=== PATIENT | female | born 1950 | race Caucasian/White ===

== ENCOUNTER 2018-04-02 06:47 | Inpatient (IN) ==
--- NOTE | 2018-04-02 07:19 | Emergency Department Note ---
Disposition Clinical Impression: Intractable abdominal pain Abdominal pain Qualifiers: Abdominal location: right lower quadrant Qualified Code(s): R10.31 - Right lower quadrant pain Disposition: Admitted As Inpatient Condition: Fair General Adult HPI - General Chief complaint: ED Extremity Problem,Nontraumatic Stated complaint: R Flank Pain Time Seen by Provider: 04/02/18 06:56 Source: patient Limitations: no limitations Nursing Notes Reviewed: Yes Vital Signs Reviewed: Yes - History of Present Illness HPI Narrative: 68 yo f with flank pain. type two DM, htn, bowel resection due to diverticulitis. Pain present for 4 days but worsened significantly this morning while she was walking into work. Denies recent trauma. Patient is writhing in the bed in pain. Denies vaginal bleeding, vaginal discharge. Unclear if she has a history of kidney stone the past. Denies hematochezia, melena, diarrhea. Denies chest pain, shortness of breath, cough, dysuria, change in urinary frequency or urgency. Pain Scale: 10 - Related Data Home Medications Medication Instructions Recorded Confirmed Glimepiride [Amaryl] 1 mg PO DAILY 04/02/18 04/02/18 Lovastatin 10 mg PO HS 04/02/18 04/02/18 RX: Ibuprofen 800 mg PO Q8H PRN 04/02/18 04/02/18 RX: hydroCHLOROthiazide 25 mg PO DAILY 04/02/18 04/02/18 [Hydrochlorothiazide] Allergies Allergy/AdvReac Type Severity Reaction Status Date / Time prochlorperazine Allergy Anaphylaxis Verified 04/02/18 22:17 [From Compazine] All systems ED: reviewed and negative except as stated. Past Medical History - Past Medical History Attestation: Yes The following information was validated with the patient. Source: patient Medical history: Reports: diabetes, hypertension Surgical history: Reports: other (heart cath in 95) Psychiatric history: Reports: no psych history [employer] history: Reports: other - Social History Smoking Status: Current some day smoker Smokeless Tobacco Status: No Alcohol use: Reports: none Drug use: Reports: none Physical Exam General: Alert and in no acute distress Skin: Warm, dry, intact Head: Normocephalic and atraumatic Neck: Supple, trachea midline and no tenderness Cardiovascular: RRR, no murmur, normal perfusion. Pulses equal in the bilateral lower extremity. Respiratory: CTAB, no wheezing, cough, or respiratory distress Musculoskeletal: Normal strength, no tenderness, swelling or deformity GI: Soft, moderate tenderness to palpation of the right groin and right lower quadrant. No hernia noted on exam. Neuro: A&O to person, place, time and situation. No focal deficits noted on exam Psychiatric: cooperative and appropriate mood and affect. - General Limitations: no limitations General appearance: alert, in no apparent distress Course Vital Signs Temperature 97.6 F 04/02/18 06:52 Pulse Rate 92 04/02/18 06:52 Respiratory Rate 18 04/02/18 06:52 Blood Pressure 150/107 04/02/18 06:52 O2 Sat by Pulse Oximetry 99 04/02/18 06:52 Temperature 98.1 F 04/03/18 03:31 Pulse Rate 60 04/03/18 03:31 Respiratory Rate 16 04/03/18 03:31 Blood Pressure 110/50 04/03/18 03:31 O2 Sat by Pulse Oximetry 97 04/03/18 03:31 Oxygen Delivery Oxygen Delivery Nasal Cannula Medical Decision Making - [facility] Narrative Medical decision making narrative: Patient's pain was severe, CT without contrast does not show evidence of present or recently passed ureterolithiasis. I ordered CTA of the chest abdomen pelvis to further evaluate possible aortic dissection of the right iliac crest, the patient's pain. I also obtained lactic acid to further evaluate for possible mesenteric ischemia secondary to her pain out of proportion to exam. Pulses remained equal in bilateral lower extremities. Laboratory evaluation was largely within normal limits. CT did not show evidence of acute surgical patho logy however she did have a large amount of stool in her colon. Patient required multiple doses of pain medication emergency department and will be admitted for intractable pain. - Medical Records Medical records reviewed: Yes I reviewed the patient's medical records. - Lab Data Lab results reviewed: Yes I reviewed the patient's lab results. Result diagrams: 04/02/18 07:42 04/02/18 07:42 Lab Results 04/02/18 04/02/18 04/02/18 Range/Units 07:42 07:42 10:06 WBC 7.8 (4.3-11.1) K/mcL RBC 5.42 H (3.82-4.97) M/mcL Hgb 15.8 H (11.5-15.4) g/dL Hct 47.8 H (35.3-44.9) % MCV 88.2 (83.0-100.0) fL MCH 29.2 (28.0-33.3) pg MCHC 33.1 (31.6-35.5) g/dL RDW 12.6 (11.5-14.5) % Plt Count 233 (140-400) K/mcL MPV 10.5 (9.4-12.4) fL Immature Gran % 0.3 (0-4) % Seg Neutrophils % 58.6 % Lymphocytes % 32.5 % Monocytes % 6.8 % Eosinophils % 1.4 % Basophils % 0.4 % Neutrophils # 4.6 (1.6-8.9) K/mcL Lymphocytes # 2.6 (0.6-4.6) K/mcL Monocytes # 0.5 (0.0-1.3) K/mcL Eosinophils # 0.1 (0.0-0.6) K/mcL Basophils # 0.0 (0.0-0.2) K/mcL Sodium 135 L (136-145) mEq/L Potassium 3.8 (3.5-5.1) mEq/L Chloride 102 (98-107) mEq/L Carbon Dioxide 23 (23-29) mEq/L BUN 15 (8-23) mg/dL Creatinine 0.60 (0.60-1.20) mg/dL Est GFR ( Amer) > 60 (> 60) Est GFR (Non-Af Amer) > 60 (> 60) BUN/Creatinine Ratio 25 (6-26) Glucose 286 H (70-105) mg/dL Calculated Osmolality 291 (280-300) Lactic Acid 1.1 (0.5-2.2) mmol/L Calcium 9.4 (8.6-10.3) mg/dL Urine Color (Yellow) Urine Clarity (Clear) Urine pH (5.0-8.0) pH Units Ur Specific Jewett (1.010-1.025) Urine Protein (Neg-Trace) mg/dL Urine Glucose (UA) (Normal) mg/dL Urine Ketones (Negative) mg/dL Urine Blood (Negative) Urine Nitrite (Negative) Urine Bilirubin (Negative) Urine Urobilinogen (Normal) mg/dL Ur Leukocyte Esterase (Negative) Urine Microscopic RBC (0-3) per hpf Urine Microscopic WBC (0-3) per hpf Ur Squamous Epith Cells (None-Few) per lpf Urine Bacteria (None-Few) per hpf Hyaline Casts (None-Few) per lpf Ur Culture Indicated? (NO) 04/02/18 Range/Units 10:09 WBC (4.3-11.1) K/mcL RBC (3.82-4.97) M/mcL Hgb (11.5-15.4) g/dL Hct (35.3-44.9) % MCV (83.0-100.0) fL MCH (28.0-33.3) pg MCHC (31.6-35.5) g/dL RDW (11.5-14.5) % Plt Count (140-400) K/mcL MPV (9.4-12.4) fL Immature Gran % (0-4) % Seg Neutrophils % % Lymphocytes % % Monocytes % % Eosinophils % % Basophils % % Neutrophils # (1.6-8.9) K/mcL Lymphocytes # (0.6-4.6) K/mcL Monocytes # (0.0-1.3) K/mcL Eosinophils # (0.0-0.6) K/mcL Basophils # (0.0-0.2) K/mcL Sodium (136-145) mEq/L Potassium (3.5-5.1) mEq/L Chloride (98-107) mEq/L Carbon Dioxide (23-29) mEq/L BUN (8-23) mg/dL Creatinine (0.60-1.20) mg/dL Est GFR ( Amer) (> 60) Est GFR (Non-Af Amer) (> 60) BUN/Creatinine Ratio (6-26) Glucose (70-105) mg/dL Calculated Osmolality (280-300) Lactic Acid (0.5-2.2) mmol/L Calcium (8.6-10.3) mg/dL Urine Color Yellow (Yellow) Urine Clarity Cloudy A (Clear) Urine pH 6.5 (5.0-8.0) pH Units Ur Specific Jewett > 1.030 H (1.010-1.025) Urine Protein Negative (Neg-Trace) mg/dL Urine Glucose (UA) >=1000 H (Normal) mg/dL Urine Ketones 15 H (Negative) mg/dL Urine Blood Negative (Negative) Urine Nitrite Positive A (Negative) Urine Bilirubin Negative (Negative) Urine Urobilinogen Normal (Normal) mg/dL Ur Leukocyte Esterase Negative (Negative) Urine Microscopic RBC 0-3 (0-3) per hpf Urine Microscopic WBC 3-5 H (0-3) per hpf Ur Squamous Epith Cells Many H (None-Few) per lpf Urine Bacteria Many H (None-Few) per hpf Hyaline Casts None Seen (None-Few) per lpf Ur Culture Indicated? NO. A (NO)
[2018-04-02] MEDS ORDERED: Ondansetron ODT 4 MG TAB.RAPDIS SL ONE (07:20)
[2018-04-02] MEDS ORDERED: Ketorolac 30 MG/ML VIAL IM ONE (07:22)
[2018-04-02 07:50] LABS: Basophils % 0.4 %; Eosinophils # 0.1 K/mcL (0.0-0.6); Eosinophils % 1.4 %; Hematocrit 47.8 % (35.3-44.9); Hemoglobin 15.8 g/dL (11.5-15.4); Immature Granulocytes % 0.3 % (0-4); Lymphocytes # 2.6 K/mcL (0.6-4.6); Lymphocytes % 32.5 %; Mean Corpuscular HGB Conc 33.1 g/dL (31.6-35.5); Mean Corpuscular Hemoglobin 29.2 pg (28.0-33.3); Mean Corpuscular Volume 88.2 fL (83.0-100.0); Mean Platelet Volume 10.5 fL (9.4-12.4); Monocytes # 0.5 K/mcL (0.0-1.3); Monocytes % 6.8 %; Neutrophils # 4.6 K/mcL (1.6-8.9); Platelet Count 233 K/mcL (140-400); Red Blood Count 5.42 M/mcL (3.82-4.97); Red Cell Distribution Width 12.6 % (11.5-14.5); Segmented Neutrophils % 58.6 %
[2018-04-02 08:11] LABS: BUN/Creatinine Ratio 25 (6-26); Blood Urea Nitrogen 15 mg/dL (8-23); Calcium 9.4 mg/dL (8.6-10.3); Carbon Dioxide 23 mEq/L (23-29); Chloride 102 mEq/L (98-107); Glucose 286 mg/dL (70-105); Osmolality,Calculated 291 (280-300); Potassium 3.8 mEq/L (3.5-5.1); Sodium 135 mEq/L (136-145); eGFR For Non-African Americans > 60 (> 60)
[2018-04-02] MEDS ORDERED: 0.9 % Sodium Chloride 1,000 ML IVC ONE (08:43)
[2018-04-02] MEDS ORDERED: Isovue-370 500 ML BOTTLE IVP ONE ×2 (08:43→09:41)
[2018-04-02] MEDS ORDERED: *HR* FentaNYL (PF) 100 MCG/2 ML VIAL IVP ONE ×3 (08:43→12:13)
[2018-04-02] MEDS ORDERED: Dicyclomine 20 MG/2 ML AMPUL IM STA (09:14)
[2018-04-02] MEDS ORDERED: Ondansetron 4 MG/2 ML VIAL IVP ONE (09:15)
[2018-04-02 10:20] LABS: Bilirubin,Urine Negative (Negative); Blood,Urine Negative (Negative); Clarity,Urine Cloudy (Clear); Color,Urine Yellow (Yellow); Glucose,Urine (UA) >=1000 mg/dL (Normal); Ketones,Urine 15 mg/dL (Negative); Leukocyte Esterase,Urine Negative (Negative); Nitrite,Urine Positive (Negative); PH,Urine 6.5 pH Units (5.0-8.0); Protein,Urine Negative (Neg-Trace); Specific Gravity,Urine > 1.030 (1.010-1.025); Urobilinogen,Urine Normal (Normal)
[2018-04-02 10:23] LABS: Bacteria,Urine Many per hpf (None-Few); Hyaline Casts,Urine None Seen per lpf (None-Few); RBC,Urine 0-3 per hpf (0-3); Squamous Epithelial Cell,Urine Many per lpf (None-Few)
[2018-04-02] MEDS ORDERED: Acetaminophen 325 MG TABLET PO PRN (11:37)
[2018-04-02] MEDS ORDERED: Ondansetron 4 MG/2 ML VIAL IVP PRN (11:37)
[2018-04-02] MEDS ORDERED: Naloxone 0.4 MG/ML INJ IVP PRN (11:37)
[2018-04-02] MEDS ORDERED: Ketorolac 15 MG/ML VIAL IVP ONE (11:59)
[2018-04-02] MEDS ORDERED: Lactulose Oral Soln 20 GM/30 ML UDC PO PRN (12:06)
--- NOTE | 2018-04-02 12:22 | Internal Med History&Physical ---
Date of Encounter: 04/02/18 Time of Encounter: 12:10 Internal Medicine - H&P: HPI Chief complaint: Rt flank pain Admitted From: Emergency Dept Plans for Post Hospital Care: Home History of present illness: Ms. Sorto is a 68 year old female with known PMH o HTN, back pain, anxiety, s/p bowel resection due to diverticulitis who presented to ER with worsening lower back, Rt hip / flank pain from last 4 days. This morning while she was going to work she noticed more intense pain from lower back, Rt flank radiating to her groin with ambulation / movement in her extremities. In the ER her CT of Abd/ Pelvis showed 2-3mm non-obstructing bilateral renal calculi, moderate amount of stool in the colon noticed. She denied any CP / SOB. She denied any trauma and recent fall. Her pain is 10 out of 10 in severity, radiating to right groin, sharp and shooting type of pain. Denied any fever / chills. Denied any dysuria. However her UA showed nitrite +ve. She had a moderately hard BM x1 y/d. Past Med Surg Social Fam HX - Past Medical History Medical history: diabetes, hypertension Psychiatric history: no psych history - Past Surgical History Surgical History: other (heart cath in 95) Additional surgical history: bowel resection, heart cath no stents, back sx l4 l5 - Social History Smoking Status: Current some day smoker Smokeless Tobacco Status: No Alcohol use: none Drug use: none - Family History Father Hx Family Cardiac Disorders: Yes (father in his 50s with heart dx) Internal Medicine - H&P: Meds Rutin/Hesp/Bioflav/C/Herb#196 [Bioflex Tablet] 1 each PO QAM 03/24/15 [History] Aspirin Enteric Coated [Aspirin EC] 81 mg PO DAILY #30 tablet. 03/25/15 [Rx] Cyclobenzaprine [Flexeril] 10 mg PO BID PRN #14 tablet 03/25/15 [Rx] Ibuprofen [Motrin] 600 mg PO Q8HR PRN #30 tab 03/25/15 [Rx] Metoprolol [Lopressor] 12.5 mg PO BID #16 tablet 03/25/15 [Rx] Lidocaine Patch [Lidoderm 5% patch] 1 each TP DAILY PRN #7 adh..patch 02/05/18 [Rx] Allergy/AdvReac Type Severity Reaction Status Date / Time prochlorperazine Allergy Anaphylaxis Verified 04/10/17 09:23 [From Compazine] All Systems PM: A 10-system review of systems was performed and is negative for pertinent findings except as documented above in the HPI. Review of systems: All the systems are reviewed everything is benign except the systems and symptoms I mentioned in the history of present illness - Constitutional Vitals: Temp Pulse Resp BP Pulse Ox 97.6 F 72 16 126/64 92 04/02/18 06:52 04/02/18 10:09 04/02/18 10:09 04/02/18 10:09 04/02/18 10:09 General appearance: Present: cooperative, A&O X 3, severe distress (with pain), answers questions appropriately Exam: see below - Head Head exam: Present: atraumatic, normal inspection - Neck Neck exam general surgery: Present: supple - Respiratory Respiratory exam: Present: decreased breath sounds. Absent: rales, respiratory distress, rhonchi, wheezes - Cardiovascular Cardiovascular exam: Present: RRR, +S1, +S2. Absent: tachycardia - GI/Abdominal GI/Abdominal exam: Present: normal bowel sounds, soft, tenderness (RLQ), no peritoneal signs. Absent: guarding, rebound, rigid - Extremities Exam Extremities exam: Absent: calf tenderness, pedal edema, tenderness - Back Exam Back exam: Present: CVA tenderness (R), tenderness (lower back ). Absent: CVA tenderness (L) - Neurological Exam Neurological exam: Present: alert, oriented X3 - Psychiatric Psychiatric exam: Present: depressed - Skin Skin exam: Absent: rash Internal Med - H&P Results - Labs CBC & Chem 7: 04/02/18 07:42 04/02/18 07:42 Labs: Short CBC 04/02/18 Range/Units 07:42 WBC 7.8 (4.3-11.1) K/mcL Hgb 15.8 H (11.5-15.4) g/dL Hct 47.8 H (35.3-44.9) % Plt Count 233 (140-400) K/mcL Neutrophils # 4.6 (1.6-8.9) K/mcL BMP 04/02/18 07:42 Sodium 135 L Potassium 3.8 Chloride 102 Carbon Dioxide 23 BUN 15 Creatinine 0.60 Glucose 286 H Calcium 9.4 Urine 04/02/18 Range/Units 10:09 Urine Color Yellow (Yellow) Urine Clarity Cloudy A (Clear) Urine pH 6.5 (5.0-8.0) pH Units Ur Specific Christopher > 1.030 H (1.010-1.025) Urine Protein Negative (Neg-Trace) mg/dL Urine Glucose (UA) >=1000 H (Normal) mg/dL - Impressions ITS Impressions Abdomen/Pelvis CT 04/02/18 07:20 IMPRESSION: 1. There is a 2-3 mm nonobstructing bilateral renal calculi. 2. Postsurgical changes from partial colectomy with a colorectal anastomosis. Moderate amount of stool in the colon. 3. Otherwise no acute abdominal or pelvic abnormality on this unenhanced study. D/ / 04/02/2018 08:35:37 Johanny Pinedo MD / Beth Benedict Interpreting Provider: Johanny Pinedo MD CT Dissection 04/02/18 08:43 IMPRESSION: 1. No evidence of an aortic dissection or aneurysm. 2. Atherosclerotic disease. 3. Nonobstructing renal calculi. D/ / 04/02/2018 10:25:59 Otis Osborn MD / kirsten Interpreting Provider: Otis Osborn MD - Assessment and plan (1) Intractable low back pain Current Visit: Yes Status: Acute Assessment and plan: Place the pt into tele for observation Reviewed her CT of Abd/ Pelvis - No signs of hip fx Her pain seems to be more like muscle pull / strain and due to constipation too Started her IV Toradol, and IV Fentanyl PRN placed her on monitor worker resumed home flexaryl PT / OT eval Cont close monitoring (2) UTI (urinary tract infection) Current Visit: Yes Status: Acute Assessment and plan: UA is abnormal Given her symptoms with Rt flank pain started on empirical abx Rocephin Urine cx ordered Qualifiers: Urinary tract infection type: acute cystitis Hematuria presence: without hematuria Qualified Code(s): N30.00 - Acute cystitis without hematuria (3) Constipation Current Visit: Yes Status: Acute Assessment and plan: started on stool softners Miralax, Senna plus and Lactulose PRN Qualifiers: Constipation type: unspecified constipation type Qualified Code(s): K59.00 - Constipation, unspecified (4) DVT prophylaxis Current Visit: No Status: Acute Assessment and plan: low risk early ambulation recommend (5) HTN (hypertension) Current Visit: No Status: Chronic Assessment and plan: will resume all home meds Qualifiers: Hypertension type: essential hypertension Qualified Code(s): I10 - Essentia l (primary) hypertension - Time Spent With Patient Total time spent is greater than 50% in coordination of care (as documented) at patient's floor/unit and/or counseling patient:
[2018-04-02] MEDS: Sennosides/Docusate Sodium TABLET PO SCH ×2 (14:42→21:12)
[2018-04-02] MEDS: cefTRIAXone 1,000 MG in Water for inj. (sterile) 20 ML 10 ML IVP SCH (14:43)
[2018-04-02] MEDS: Ketorolac 15 MG/ML VIAL IVP PRN ×2 (14:58→21:12)
[2018-04-02] MEDS: *HR* FentaNYL (PF) 100 MCG/2 ML VIAL IVP PRN ×2 (16:21→22:18)
--- NOTE | 2018-04-02 18:00 | Urology - Consult Note ---
Date of Encounter: 04/02/18 Time of Encounter: 17:57 - Assessment and Plan (1) Kidney stones Current Visit: Yes Status: Acute Assessment and plan: Patient with non-obstructing bilateral kidney stones. I do not believe that these are contributing to the patient's pain. (2) Abdominal pain Current Visit: Yes Status: Acute Assessment and plan: Unknown etiology of pain at this time. Continue with pain control. Qualifiers: Abdominal location: right lower quadrant Qualified Code(s): R10.31 - Right lower quadrant pain (3) Acute cystitis without hematuria Current Visit: Yes Status: Acute Assessment and plan: Continue with Rocephin at this time. Urine culture has been sent. We will continue to follow along closely. I am unsure if the patient's UTI could be related to her discomfort. Patient's pain appears of proportion to normal symptoms of UTI. Urology CN:SALIMA Consult date: 04/02/18 Reason for consult Urology: Other (abdominal pain) Requesting physician: Jacob Trejo History of present illness: Lisbeth is a 68-year-old female well-known to me. Patient admitted to Hospital today secondary to severe right lower quadrant abdominal discomfort. Patient states the pain started this morning. Patient's pain is currently 210. Sharp in nature no obvious radiation. On taking the seems to make it better is slight pressure. Patient has been having some off-and-on diarrhea after drinking ice water over the past few days. She did have vomiting yesterday. No fevers. Patient without dysuria. No gross hematuria. Patient did have CT scan done upon arrival to the hospital which showed bilateral nonobstructing kidney stones with no obvious hydronephrosis. Patient did have CT dissection protocol without any evidence of dissection. Patient does state that abduction of her right hip does seem to make the discomfort worse. Past Med Surg Social Fam HX - Past Medical History Medical history: diabetes, hypertension Psychiatric history: no psych history - Past Surgical History Surgical History: other (heart cath in 95) Additional surgical history: bowel resection, heart cath no stents, back sx l4 l5 - Social History Smoking Status: Current some day smoker Packs per day: 0.5 Smokeless Tobacco Status: No Alcohol use: none Drug use: none - Family History Mother Hx Family Cancer: Yes (thyroid with mets.) Father Living Status: Age at : 56 Cause of : [place] Hx Family Cardiac Disorders: Yes Medications and Allergies Rutin/Hesp/Bioflav/C/Herb#196 [Bioflex Tablet] 1 each PO QAM 03/24/15 [History] Aspirin Enteric Coated [Aspirin EC] 81 mg PO DAILY #30 tablet. 03/25/15 [Rx] Cyclobenzaprine [Flexeril] 10 mg PO BID PRN #14 tablet 03/25/15 [Rx] Ibuprofen [Motrin] 600 mg PO Q8HR PRN #30 tab 03/25/15 [Rx] Metoprolol [Lopressor] 12.5 mg PO BID #16 tablet 03/25/15 [Rx] Lidocaine Patch [Lidoderm 5% patch] 1 each TP DAILY PRN #7 adh..patch 04/10/17 [Rx] Allergy/AdvReac Type Severity Reaction Status Date / Time prochlorperazine Allergy Anaphylaxis Verified 04/10/17 09:23 [From Compazine] Review of Systems - Constitutional no chills, no fever(s) - EENT Nose, mouth and throat: no dizziness, no throat swelling - Cardiovascular no chest pain, no dyspnea - Respiratory no cough - Gastrointestinal abdominal pain, nausea, vomiting - Genitourinary Genitourinary: as per HPI - Musculoskeletal no back pain - Integumentary no erythema, no unusual bruising - Neurological no confusion, no sensory deficit, no syncope, no weakness - Psychiatric no confusion, no suicidal ideation - Hematologic/Lymphatic no lymphadenopathy - Allergic/Immunologic no throat swelling, no wheezing Exam Initial Vital Signs Temp Pulse Resp BP Pulse Ox 97.6 F 92 18 150/107 99 04/02/18 06:52 04/02/18 06:52 04/02/18 06:52 04/02/18 06:52 04/02/18 06:52 General/Neuological: alert and oriented x 3 Eyes: normal pupils, non-icteric Neck: no lymphadenopathy noted, supple to touch ABD: soft, tender on palpation of right lower quadrant. Pain is located in the severe lower right quadrant. Back: no pain on percussion bilaterally Skin: no rashes noted Musculoskeletal: normal gait, FROMx4 Urology Results - Labs 04/02/18 07:42 04/02/18 07:42 Abnormal lab results RBC 5.42 M/mcL (3.82-4.97) H 04/02/18 07:42 Hgb 15.8 g/dL (11.5-15.4) H 04/02/18 07:42 Hct 47.8 % (35.3-44.9) H 04/02/18 07:42 Sodium 135 mEq/L (136-145) L 04/02/18 07:42 Glucose 286 mg/dL (70-105) H 04/02/18 07:42 Urine Clarity Cloudy (Clear) A 04/02/18 10:09 Ur Specific [place] > 1.030 (1.010-1.025) H 04/02/18 10:09 Urine Glucose (UA) >=1000 mg/dL (Normal) H 04/02/18 10:09 Urine Ketones 15 mg/dL (Negative) H 04/02/18 10:09 Urine Nitrite Positive (Negative) A 04/02/18 10:09 Urine Microscopic WBC 3-5 per hpf (0-3) H 04/02/18 10:09 Ur Squamous Epith Cells Many per lpf (None-Few) H 04/02/18 10:09 Urine Bacteria Many per hpf (None-Few) H 04/02/18 10:09 Ur Culture Indicated? NO. (NO) A 04/02/18 10:09 Diabetes panel 04/02/18 Range/Units 07:42 Sodium 135 L (136-145) mEq/L Potassium 3.8 (3.5-5.1) mEq/L Chloride 102 (98-107) mEq/L Carbon Dioxide 23 (23-29) mEq/L BUN 15 (8-23) mg/dL Creatinine 0.60 (0.60-1.20) mg/dL Glucose 286 H (70-105) mg/dL Calcium 9.4 (8.6-10.3) mg/dL Calcium panel 04/02/18 Range/Units 07:42 Calcium 9.4 (8.6-10.3) mg/dL Pituitary panel 04/02/18 Range/Units 07:42 Sodium 135 L (136-145) mEq/L Potassium 3.8 (3.5-5.1) mEq/L Chloride 102 (98-107) mEq/L Carbon Dioxide 23 (23-29) mEq/L BUN 15 (8-23) mg/dL Creatinine 0.60 (0.60-1.20) mg/dL Glucose 286 H (70-105) mg/dL Calcium 9.4 (8.6-10.3) mg/dL Adrenal panel 04/02/18 Range/Units 07:42 Sodium 135 L (136-145) mEq/L Potassium 3.8 (3.5-5.1) mEq/L Chloride 102 (98-107) mEq/L Carbon Dioxide 23 (23-29) mEq/L BUN 15 (8-23) mg/dL Creatinine 0.60 (0.60-1.20) mg/dL Glucose 286 H (70-105) mg/dL Calcium 9.4 (8.6-10.3) mg/dL All other labs normal. Consult Discharge Plan - Plan Referrals: Ai Pham CNP [Primary Care Provider] - 04/10/18 11:00 am
[2018-04-02] MEDS: hydroCHLOROthiazide 25 MG TABLET PO SCH (22:17)
[2018-04-03] MEDS: Ketorolac 15 MG/ML VIAL IVP PRN ×2 (04:35→19:04)
[2018-04-03] MEDS: *HR* FentaNYL (PF) 100 MCG/2 ML VIAL IVP PRN ×3 (05:40→21:45)
--- NOTE | 2018-04-03 07:57 | Electrocardiograph Report ---
[facility] Test Date: 2018-04-02 Pat Name: Lisbeth Sorto Department: EXAM4 Room: 3B65 Gender: F [employer]: : 1950 Requested By: Dennis Qiu Order Number: [id number] Reading MD: Kim Girard Measurements Intervals [place] Rate: 66 P: 68 FL: 160 QRS: 53 QRSD: 101 T: 88 QT: 521 QTc: 546 Interpretive Statements Sinus rhythm Probable left atrial enlargement Low voltage, precordial leads Nonspecific T abnrm, anterolateral leads Prolonged QT interval Electronically Signed On 04-03-2018 7:55:50 EST by Kim Girard
[2018-04-03] MEDS: *HR* Glimepiride 2 MG TABLET PO SCH (08:34)
[2018-04-03] MEDS: Sennosides/Docusate Sodium TABLET PO SCH ×2 (08:34→21:34)
[2018-04-03] MEDS: traMADol 50 MG TABLET PO PRN (08:41)
--- NOTE | 2018-04-03 09:35 | Urology Progress Note ---
Date of Encounter: 04/03/18 Time of Encounter: 09:34 - Assessment and Plan (1) Kidney stones Current Visit: Yes Status: Acute (2) Abdominal pain Current Visit: Yes Status: Acute Qualifiers: Abdominal location: right lower quadrant Qualified Code(s): R10.31 - Right lower quadrant pain (3) Acute cystitis without hematuria Current Visit: Yes Status: Acute Assessment and plan: Awaiting culture results. Patient to continue with broad-spectrum antibiotics until cultures return. Progress Note Narrative: Patient seen this morning. Patient feeling slightly better. Still with some significant right lower quadrant discomfort. Objective Initial Vital Signs Temp Pulse Resp BP Pulse Ox 97.6 F 92 18 150/107 99 04/02/18 06:52 04/02/18 06:52 04/02/18 06:52 04/02/18 06:52 04/02/18 06:52 - General physical appearance Present: well developed, well nourished - Abdomen Present: soft, tender - Labs 04/02/18 07:42 04/02/18 07:42 Consult Discharge Plan - Plan Referrals: Ai Pham CNP [Primary Care Provider] - 04/10/18 11:00 am
[2018-04-03 10:14] LABS: Basophils % 0.3 %; Eosinophils # 0.1 K/mcL (0.0-0.6); Eosinophils % 1.9 %; Hematocrit 46.3 % (35.3-44.9); Hemoglobin 15.3 g/dL (11.5-15.4); Immature Granulocytes % 0.3 % (0-4); Lymphocytes # 2.9 K/mcL (0.6-4.6); Mean Corpuscular Hemoglobin 29.2 pg (28.0-33.3); Mean Corpuscular Volume 88.4 fL (83.0-100.0); Mean Platelet Volume 10.4 fL (9.4-12.4); Monocytes # 0.4 K/mcL (0.0-1.3); Monocytes % 6.7 %; Neutrophils # 2.4 K/mcL (1.6-8.9); Platelet Count 237 K/mcL (140-400); Red Blood Count 5.24 M/mcL (3.82-4.97); Red Cell Distribution Width 12.8 % (11.5-14.5); Segmented Neutrophils % 40.8 %
[2018-04-03 10:32] LABS: BUN/Creatinine Ratio 19 (6-26); Blood Urea Nitrogen 12 mg/dL (8-23); Calcium 9.3 mg/dL (8.6-10.3); Carbon Dioxide 30 mEq/L (23-29); Chloride 102 mEq/L (98-107); Glucose 297 mg/dL (70-105); Osmolality,Calculated 297 (280-300); Potassium 3.3 mEq/L (3.5-5.1); Sodium 138 mEq/L (136-145); eGFR For Non-African Americans > 60 (> 60)
[2018-04-03] MEDS: cefTRIAXone 1,000 MG in Water for inj. (sterile) 20 ML 10 ML IVP SCH (13:19)
--- NOTE | 2018-04-03 13:33 | Internal Med Progress Note ---
Hospitalist Progress Note - Encounter Date of Encounter: 04/03/18 Time of Encounter: 10:00 - Subjective Interval History: Ms. Sorto is a 68 year old female with known PMH o HTN, back pain, anxiety, s/p bowel resection due to diverticulitis who presented to ER with worsening lower back, Rt hip / flank pain from last 4 days. This morning while she was g oing to work she noticed more intense pain from lower back, Rt flank radiating to her groin with ambulation / movement in her extremities. In the ER her CT of Abd/ Pelvis showed 2-3mm non-obstructing bilateral renal calculi, moderate amount of stool in the colon noticed. She denied any trauma and recent fall. pt stated her pain is little better today. Still has 4/10 Rt groin pain, worsens with ROM , Abduction at Rt Hip. - Exam Vitals: Temp Pulse Resp BP Pulse Ox 98.4 F 66 16 133/77 97 04/03/18 11:03 04/03/18 11:03 04/03/18 11:03 04/03/18 11:03 04/03/18 11:03 Exam: Gen: Alert, awake, Oriented to time,place and person Chest: Diminished breath sounds B/L, No wheezing, No crackles, No rales Heart: S1S2+ RRR No murmurs Abd: Soft, NT, BS +, No organomegaly Ext: No edema, pulses are palpable, No calf tenderness.. Limited ROM in Rt hip.. Moderate tenderness with abduction over Rt Hip Neuro : Benign findings Skin: No rash. - Assessment and Plan (1) Intractable low back pain Current Visit: Yes Status: Acute Assessment and Plan: Reviewed her CT of Abd/ Pelvis - No signs of hip fx Her pain seems to be more like muscle pull / strain Improving Cont IV Toradol, and IV Fentanyl PRN Cont her on conveyor monitor will resume home meds PT / OT eval - P Ortho consulted (2) Right hip pain Current Visit: Yes Status: Acute Assessment and Plan: Due to DJD vs Muscle pull Ortho consulted continue symptomatic and supportive care (3) Kidney stones Current Visit: Yes Status: Acute Assessment and Plan: Non obstructive b/l calculi does not look like her Rt hip pain related to renal calculi Urology on board (4) UTI (urinary tract infection) Current Visit: Yes Status: Acute Assessment and Plan: UA is abnormal Given her symptoms with Rt flank pain Cont on empirical abx Rocephin Urine cx - P (5) Constipation Current Visit: Yes Status: Acute Assessment and Plan: Still no BM yet Cont stool softners Miralax, Senna plus and Lactulose PRN (6) DVT prophylaxis Current Visit: No Status: Acute Assessment and Plan: low risk early ambulation recommend (7) HTN (hypertension) Current Visit: No Status: Chronic Assessment and Plan: will resume all home meds - Time Spent with Patient Total time spent is greater than 50% in coordination of care (as documented) at patient's floor/unit and/or counseling patient: Internal Medicine: Result - Labs CBC & Chem 7: 04/03/18 09:55 04/03/18 09:55 Labs: Short CBC 04/03/18 Range/Units 09:55 WBC 5.8 (4.3-11.1) K/mcL Hgb 15.3 (11.5-15.4) g/dL Hct 46.3 H (35.3-44.9) % Plt Count 237 (140-400) K/mcL Neutrophils # 2.4 (1.6-8.9) K/mcL BMP 04/03/18 09:55 Sodium 138 Potassium 3.3 L Chloride 102 Carbon Dioxide 30 H BUN 12 Creatinine 0.62 Glucose 297 H Calcium 9.3 Consult Discharge Plan - Plan Referrals: Ai Pham, [employer] [Primary Care Provider] - 04/10/18 11:00 am ____ (4) UTI (urinary tract infection) Qualifiers: Urinary tract infection type: acute cystitis Hematuria presence: without hematuria Qualified Code(s): N30.00 - Acute cystitis without hematuria (5) Constipation Qualifiers: Constipation type: unspecified constipation type Qualified Code(s): K59.00 - Constipation, unspecified (7) HTN (hypertension) Qualifiers: Hypertension type: essential hypertension Qualified Code(s): I10 - Essential (primary) hypertension
--- NOTE | 2018-04-03 16:41 | Orthopedic Consult Note ---
Date of Encounter: 04/05/18 Time of Encounter: 08:30 Assessment and Plan (1) Sacral insufficiency fracture Status: Acute Plan for conservative treatment. WBAT with walker or cane for 1-2 weeks. Continue with analgesics and pain control. Flexeril has helped with Lidoderm patch. PT/OT needed outpatient. Recommend follow up with Vitamin D and Calcium, follow up with PCP Plan to follow up outpatient. Stable from Ortho standpoint tomorrow. Plan for SI belt as needed for support. Plan off work x 1-2 weeks. Qualifiers: Encounter type: initial encounter Qualified Code(s): M84.48XA - Pathological fracture, other site, initial encounter for fracture (2) Right hip pain Status: Acute XRAYS reviewed: ITS Impressions Abdomen/Pelvis CT 04/02/18 07:20 IMPRESSION: 1. There is a 2-3 mm nonobstructing bilateral renal calculi. 2. Postsurgical changes from partial colectomy with a colorectal anastomosis. Moderate amount of stool in the colon. 3. Otherwise no acute abdominal or pelvic abnormality on this unenhanced study. Hip X-Ray 04/03/18 16:39 IMPRESSION: 1. No evidence of fracture. 2. Right CAM deformity. D/ / Wilfredo Blackburn / Wilfredo Blackburn Interpreting Provider: Wilfredo Blackburn Lumbar Spine X-Ray 04/03/18 16:39 IMPRESSION: 1. No acute lumbar spine abnormality 2. Multilevel degenerative disc disease throughout the lumbar spine most pronounced at L5-S1 to a moderate degree. D/ / Reji Doe MD / Reji Doe MD Interpreting Provider: Reji Doe MD orquidea History of Present Illness Chief complaint: Right Groin pain, right low back pain HPI: Ms. Sorto is a 68 year old female Past Med Surg Social Fam HX - Past Medical History Medical history: diabetes, hypertension Psychiatric history: no psych history - Past Surgical History Surgical History: other (heart cath in 95) Additional surgical history: bowel resection, heart cath no stents, back sx l4 l5 - Social History Smoking Status: Current some day smoker Packs per day: 0.5 Smokeless Tobacco Status: No Alcohol use: none Drug use: none - Family History Mother Hx Family Cancer: Yes (thyroid with mets.) Father Living Status: Age at : 56 Cause of : MA Hx Family Cardiac Disorders: Yes Medications and Allergies Ibuprofen 800 mg PO Q8H PRN 04/02/18 [History] Lovastatin 10 mg PO HS 04/02/18 [History] hydroCHLOROthiazide [Hydrochlorothiazide] 25 mg PO DAILY 04/02/18 [History] Cephalexin [Keflex] 500 mg PO TID #6 capsule 04/05/18 [Rx] Cyclobenzaprine [Flexeril] 10 mg PO TID PRN 10 Days #30 tablet 04/05/18 [Rx] Insulin Glargine,Hum.rec.anlog [Lantus Solostar] 15 unit SQ HS #1 insuln.pen 04/05/18 [Rx] OxyCODONE/APAP 5/325 [Percocet 5/325 MG] 1 each PO Q6HR PRN 7 Days #20 tablet 04/05/18 [Rx] Polyethylene Glycol 3350 [MiraLAX] 17 gm PO DAILY PRN #15 powd.pack 04/05/18 [Rx] Sennosides/Docusate Sodium [Senna Plus] 1 each PO BID PRN #30 tablet 04/05/18 [Rx] Sitagliptin Phosphate [Januvia] 50 mg PO DAILY #30 tab 04/05/18 [Rx] glipiZIDE [Glipizide ER] 10 mg PO DAILY #30 tab.er.24 04/05/18 [Rx] Allergy/AdvReac Type Severity Reaction Status Date / Time prochlorperazine Allergy Anaphylaxis Verified 04/02/18 22:17 [From Compazine] All Systems Reviewed: The remainder of the systems were reviewed and are negative Physical Exam - Constitutional Vitals: Temp Pulse Resp BP Pulse Ox 98.3 F 65 98 116/54 97 04/03/18 15:11 04/03/18 15:11 04/03/18 15:11 04/03/18 15:11 04/03/18 11:03 Results - Labs Result Diagrams: 04/05/18 05:33 04/05/18 05:33 Labs: Abnormal lab results RBC 5.24 M/mcL (3.82-4.97) H 04/03/18 09:55 Hct 46.3 % (35.3-44.9) H 04/03/18 09:55 Potassium 3.3 mEq/L (3.5-5.1) L 04/03/18 09:55 Carbon Dioxide 30 mEq/L (23-29) H 04/03/18 09:55 Glucose 297 mg/dL (70-105) H 04/03/18 09:55 POC Glucose 243 mg/dL (70-99) H 04/03/18 15:14 Urine Clarity Cloudy (Clear) A 04/02/18 10:09 Ur Specific [place] > 1.030 (1.010-1.025) H 04/02/18 10:09 Urine Glucose (UA) >=1000 mg/dL (Normal) H 04/02/18 10:09 Urine Ketones 15 mg/dL (Negative) H 04/02/18 10:09 Urine Nitrite Positive (Negative) A 04/02/18 10:09 Urine Microscopic WBC 3-5 per hpf (0-3) H 04/02/18 10:09 Ur Squamous Epith Cells Many per lpf (None-Few) H 04/02/18 10:09 Urine Bacteria Many per hpf (None-Few) H 04/02/18 10:09 Ur Culture Indicated? NO. (NO) A 04/02/18 10:09 H & H 04/03/18 Range/Units 09:55 Hgb 15.3 (11.5-15.4) g/dL Hct 46.3 H (35.3-44.9) % All other labs normal. Consult Discharge Plan - Plan Instructions: Sacral Fracture, Straw [employer] Operator (GEN) Additional Instructions: Please take your script for PT/OT to where you would like to have services. You can give the company you would like to use a call and let the know that you have a script for services. Follow-up appointments: If there is not an appointment listed below, please call your physician and schedule a follow-up appointment. If you have congestive heart failure and your symptoms return, make an appointment with your physician. Medication List: Carry an up to date list of medications you are taking at all time. We have given you an updated medication list including any new medications that you have been prescribed. Please provide that list to your primary provider Symptoms: If your condition changes or you experience any of the following symptoms, notify your physician immediately: Unusual or worsening pain, fever, persistent nausea and vomiting, bleeding, increase in swelling (especially in your legs), sudden weight gain, extreme dizziness, chest pain, increased drainage or redness from a wound or incision. Go to the emergency department if you experience a problem with breathing. Weights: If you have a history of swelling or shortness of breath, weigh yourself daily and notify your physician if you have a weight gain of two or more pounds in one day or 5 or more pounds in a week. If you experience any of the warning signs for stroke: Sudden numbness or weakness of the face, arm or leg; especially on one side of the body, sudden confusion, trouble speaking or understanding, sudden trouble s eeing in one or both eyes, sudden trouble walking, dizziness, loss of balance or coordination, sudden sever headache with no cause; Call 911 or go to the emergency room. Stroke is a medical emergency. Some risk factors for stroke: Age, cigarette smoking, diabetes, excessive alcohol consumption, family history, high blood pressure, overweight, physical inactivity, prior stroke, heart attack, diagnosis of carotid artery stenosis or other artery disease. If you smoke, STOP: Smoking or tobacco use significantly increases your risk of heart and lung disease. Your chance of disease greatly increases if you continue to smoke. For more information, call the [place] tobacco quit line for smoking cessation 6-365-TFJK-NOW ( ) Referrals: [facility] [Provider Group] (Follow up appointment has been requested. Office will call with date and time of appointment. ) Ai Pham CNP [Primary Care Provider] - 04/10/18 11:00 am Prescriptions: OxyCODONE/APAP 5/325 [Percocet 5/325 MG] 1 each PO Q6HR PRN 7 Days #20 tablet PRN Reason: Moderate Pain Cephalexin [Keflex] 500 mg PO TID #6 capsule Cyclobenzaprine [Flexeril] 10 mg PO TID PRN 10 Days #30 tablet PRN Reason: Spasms glipiZIDE [Glipizide ER] 10 mg PO DAILY #30 tab.er.24 Insulin Glargine,Hum.rec.anlog [Lantus Solostar] 15 unit SQ HS #1 insuln.pen Polyethylene Glycol 3350 [MiraLAX] 17 gm PO DAILY PRN #15 powd.pack PRN Reason: Constipation Sennosides/Docusate Sodium [Senna Plus] 1 each PO BID PRN #30 tablet PRN Reason: Constipation Sitagliptin Phosphate [Januvia] 50 mg PO DAILY #30 tab
[2018-04-03] MEDS: hydroCHLOROthiazide 25 MG TABLET PO SCH (21:34)
[2018-04-04] MEDS: *HR* FentaNYL (PF) 100 MCG/2 ML VIAL IVP PRN ×2 (03:18→07:45)
[2018-04-04] MEDS: Sennosides/Docusate Sodium TABLET PO SCH ×2 (07:44→20:29)
[2018-04-04] MEDS: *HR* Glimepiride 2 MG TABLET PO SCH (07:44)
--- NOTE | 2018-04-04 09:22 | Urology Progress Note ---
Date of Encounter: 04/04/18 Time of Encounter: 09:20 - Assessment and Plan (1) Kidney stones Current Visit: Yes Status: Acute Assessment and plan: Stable, not causing pain (2) Abdominal pain Current Visit: Yes Status: Acute Assessment and plan: Unsure of etiology at this time. Awaiting orthopedics consult. Qualifiers: Abdominal location: right lower quadrant Qualified Code(s): R10.31 - Right lower quadrant pain (3) Acute cystitis without hematuria Current Visit: Yes Status: Acute Assessment and plan: Urine culture still pending. I question how much this possible UTI could be related the patient's pain as she is had minimal improvement in discomfort with 2 days of broad-spectrum antibiotics. Given that the patient had a nitrite positive urinalysis and was not and Pyridium I would recommend a seven-day complete course of antimicrobial coverage. Please call with any questions. We will continue to follow along from a distance. Progress Note Narrative: Patient seen this morning. Pain minimally improved from yesterday. Urine culture still pending. Objective Initial Vital Signs Temp Pulse Resp BP Pulse Ox 97.6 F 92 18 150/107 99 04/02/18 06:52 04/02/18 06:52 04/02/18 06:52 04/02/18 06:52 04/02/18 06:52 - General physical appearance Present: well developed, well nourished - Abdomen Present: soft. Absent: tender - Labs 04/03/18 09:55 04/03/18 09:55 Diabetes panel 04/03/18 Range/Units 09:55 Sodium 138 (136-145) mEq/L Potassium 3.3 L (3.5-5.1) mEq/L Chloride 102 (98-107) mEq/L Carbon Dioxide 30 H (23-29) mEq/L BUN 12 (8-23) mg/dL Creatinine 0.62 (0.60-1.20) mg/dL Glucose 297 H (70-105) mg/dL Calcium 9.3 (8.6-10.3) mg/dL Calcium panel 04/03/18 Range/Units 09:55 Calcium 9.3 (8.6-10.3) mg/dL Pituitary panel 04/03/18 Range/Units 09:55 Sodium 138 (136-145) mEq/L Potassium 3.3 L (3.5-5.1) mEq/L Chloride 102 (98-107) mEq/L Carbon Dioxide 30 H (23-29) mEq/L BUN 12 (8-23) mg/dL Creatinine 0.62 (0.60-1.20) mg/dL Glucose 297 H (70-105) mg/dL Calcium 9.3 (8.6-10.3) mg/dL Adrenal panel 04/03/18 Range/Units 09:55 Sodium 138 (136-145) mEq/L Potassium 3.3 L (3.5-5.1) mEq/L Chloride 102 (98-107) mEq/L Carbon Dioxide 30 H (23-29) mEq/L BUN 12 (8-23) mg/dL Creatinine 0.62 (0.60-1.20) mg/dL Glucose 297 H (70-105) mg/dL Calcium 9.3 (8.6-10.3) mg/dL Consult Discharge Plan - Plan Referrals: Ai Pham CNP [Primary Care Provider] - 04/10/18 11:00 am
[2018-04-04] MEDS: traMADol 50 MG TABLET PO PRN (10:55)
--- NOTE | 2018-04-04 11:53 | Internal Med Progress Note ---
Hospitalist Progress Note - Encounter Date of Encounter: 04/04/18 Time of Encounter: 11:51 - Subjective Interval History: Ms. Sorto is a 68 year old female with known PMH o HTN, back pain, anxiety, s/p bowel resection due to diverticulitis who presented to ER with worsening lower back, Rt hip / flank pain from last 4 days. This morning while she was g oing to work she noticed more intense pain from lower back, Rt flank radiating to her groin with ambulation / movement in her extremities. In the ER her CT of Abd/ Pelvis showed 2-3mm non-obstructing bilateral renal calculi, moderate amount of stool in the colon noticed. She denied any trauma and recent fall. Still has 4/10 Rt groin pain, worsens with ROM , Abduction at Rt Hip. Still in severe pain and requiring more frequent pain medications - Exam Vitals: Temp Pulse Resp BP Pulse Ox 98.5 F 71 15 139/77 96 04/04/18 10:43 04/04/18 10:43 04/04/18 10:43 04/04/18 10:43 04/04/18 10:43 Exam: Gen: Alert, awake, Oriented to time,place and person Chest: Diminished breath sounds B/L, No wheezing, No crackles, No rales Heart: S1S2+ RRR No murmurs Abd: Soft, NT, BS +, No organomegaly Ext: No edema, pulses are palpable, No calf tenderness.. Limited ROM in Rt hip.. Moderate tenderness with abduction over Rt Hip Neuro : Benign findings Skin: No rash. - Assessment and Plan (1) Intractable low back pain Current Visit: Yes Status: Acute Assessment and Plan: Reviewed her CT of Abd/ Pelvis - No signs of hip fx Her pain seems to be more like muscle pull / strain Still in severe Rt hip pain Reviewed her lumbar x ray and Rt hip X ray - showed moderate DJD lumbar spine more pronounced at L5-S1 Ortho consulted.. appreciate ortho recommendations will f/u on MRI of Hip and Spine Cont IV Fentanyl PRN for severe pain.. started her on Percocet for moderate pain Cont her on quality assurance monitor PT / OT eval - P Patient does need to stay in the hospital more than 2 midnights due to her c omplex medical problems. So we will change her to full admission today. I did review my H & P including HPI, PMH, PSH, FH, SH, and ROS no changes noticed (2) Right hip pain Current Visit: Yes Status: Acute Assessment and Plan: Due to DJD vs Muscle pull Ortho consulted Will f/u on Rt hip MRI continue symptomatic and supportive care (3) Kidney stones Current Visit: Yes Status: Acute Assessment and Plan: Non obstructive b/l calculi does not look like her Rt hip pain related to renal calculi Urology on board (4) UTI (urinary tract infection) Current Visit: Yes Status: Acute Assessment and Plan: UA is abnormal Given her symptoms with Rt flank pain Cont on empirical abx Rocephin Urine cx - P (5) Constipation Current Visit: Yes Status: Acute Assessment and Plan: Had a BM this morning feels better now Cont stool softners Miralax, Senna plus and Lactulose PRN (6) DVT prophylaxis Current Visit: No Status: Acute Assessment and Plan: low risk early ambulation recommend (7) HTN (hypertension) Current Visit: No Status: Chronic Assessment and Plan: will resume all home meds - Time Spent with Patient Total time spent is greater than 50% in coordination of care (as documented) at patient's floor/unit and/or counseling patient: Internal Medicine: Result - Labs CBC & Chem 7: 04/03/18 09:55 04/03/18 09:55 - Impressions Impressions Hip X-Ray 04/03/18 16:39 IMPRESSION: 1. No evidence of fracture. 2. Right CAM deformity. D/ / Wilfredo Blackburn / Wilfredo Blackburn Interpreting Provider: Wilfredo Blackburn Lumbar Spine X-Ray 04/03/18 16:39 IMPRESSION: 1. No acute lumbar spine abnormality 2. Multilevel degenerative disc disease throughout the lumbar spine most pronounced at L5-S1 to a moderate degree. D/ / Reji Doe MD / Reji Doe MD Interpreting Provider: Reji Doe MD Consult Discharge Plan - Plan Referrals: Ai Pham, [employer] [Primary Care Provider] - 04/10/18 11:00 am (4) UTI (urinary tract infection) Qualifiers: Urinary tract infection type: acute cystitis Hematuria presence: without hematuria Qualified Code(s): N30.00 - Acute cystitis without hematuria (5) Constipation Qualifiers: Constipation type: unspecified constipation type Qualified Code(s): K59.00 - Constipation, unspecified (7) HTN (hypertension) Qualifiers: Hypertension type: essential hypertension Qualified Code(s): I10 - Essential (primary) hypertension
[2018-04-04] MEDS ORDERED: D5% in Water 1,000 ML IVC PRN (12:22)
[2018-04-04] MEDS ORDERED: *HR* Dextrose 50 % in Water (Syg) 50 ML SYRINGE IVP PRN (12:22)
[2018-04-04] MEDS ORDERED: Dextrose Gel 15 GM/37.5 ML TUBE PO PRN ×2 (12:22)
[2018-04-04] MEDS: *HR* OxyCODONE/APAP 5/325 TABLET PO PRN ×3 (13:42→23:10)
[2018-04-04 14:11] LABS: Estimated Average Glucose 312 mg/dl; Hemoglobin A1C 12.5 %
[2018-04-04] MEDS: cefTRIAXone 1,000 MG in Water for inj. (sterile) 20 ML 10 ML IVP SCH (15:00)
[2018-04-04] MEDS: Insulin LISPRO 300 UNITS/3 ML VIAL SQ SCH (17:38)
[2018-04-04] MEDS: hydroCHLOROthiazide 25 MG TABLET PO SCH (20:29)
[2018-04-04] MEDS ORDERED: Insulin LISPRO 300 UNITS/3 ML VIAL SQ SCH (21:00)
[2018-04-05 06:03] LABS: Basophils % 0.5 %; Eosinophils # 0.2 K/mcL (0.0-0.6); Eosinophils % 3.5 %; Hematocrit 48.3 % (35.3-44.9); Hemoglobin 16.1 g/dL (11.5-15.4); Immature Granulocytes % 0.2 % (0-4); Lymphocytes # 3.2 K/mcL (0.6-4.6); Mean Corpuscular HGB Conc 33.3 g/dL (31.6-35.5); Mean Corpuscular Hemoglobin 29.7 pg (28.0-33.3); Mean Corpuscular Volume 89.1 fL (83.0-100.0); Mean Platelet Volume 10.2 fL (9.4-12.4); Monocytes # 0.4 K/mcL (0.0-1.3); Monocytes % 6.3 %; Neutrophils # 2.4 K/mcL (1.6-8.9); Platelet Count 233 K/mcL (140-400); Red Blood Count 5.42 M/mcL (3.82-4.97); Red Cell Distribution Width 12.5 % (11.5-14.5); Segmented Neutrophils % 38.5 %
[2018-04-05 06:21] LABS: BUN/Creatinine Ratio 27 (6-26); Blood Urea Nitrogen 16 mg/dL (8-23); Calcium 9.5 mg/dL (8.6-10.3); Carbon Dioxide 28 mEq/L (23-29); Chloride 103 mEq/L (98-107); Glucose 184 mg/dL (70-105); Osmolality,Calculated 294 (280-300); Potassium 3.4 mEq/L (3.5-5.1); Sodium 139 mEq/L (136-145); eGFR For Non-African Americans > 60 (> 60)
[2018-04-05] MEDS: *HR* Glimepiride 2 MG TABLET PO SCH (08:11)
[2018-04-05] MEDS: Insulin LISPRO 300 UNITS/3 ML VIAL SQ SCH ×2 (08:11→12:14)
[2018-04-05] MEDS: Sennosides/Docusate Sodium TABLET PO SCH (08:11)
[2018-04-05] MEDS: *HR* OxyCODONE/APAP 5/325 TABLET PO PRN (08:18)
[2018-04-05 11:01] VITALS: BP 109/66
--- NOTE | 2018-04-05 11:19 | Discharge Summary ---
- NOTES TO OUTPATIENT PROVIDER Notes to Outpatient Provider: f/u with Ortho in one week. f/u with PCP in one week. Please go for out pt PT / OT. Please take insulin Lantus 15 U QHS.. Keep check your fasting blood sugar, if it is constantly above 150 you can always add 2-3 U Lantus insulin to your regimen Orders not resulted at time of discharge: Pending orders 04/02/18 12:11 Culture,Urine [RM] Stat Date of Encounter: 04/05/18 Time of Encounter: 11:12 - Discharge Diagnosis (1) Intractable low back pain Priority: Primary Status: Acute (2) Right hip pain Priority: Primary Status: Acute (3) Sacral insufficiency fracture Priority: Secondary Status: Acute Qualifiers: Encounter type: initial encounter Qualified Code(s): M84.48XA - Pathological fracture, other site, initial encounter for fracture (4) Kidney stones Priority: Secondary Status: Acute (5) UTI (urinary tract infection) Priority: Secondary Status: Acute Qualifiers: Urinary tract infection type: acute cystitis Hematuria presence: without hematuria Qualified Code(s): N30.00 - Acute cystitis without hematuria (6) Constipation Priority: Secondary Status: Acute Qualifiers: Constipation type: unspecified constipation type Qualified Code(s): K59.00 - Constipation, unspecified (7) DVT prophylaxis Priority: Secondary Status: Acute (8) HTN (hypertension) Priority: Secondary Status: Chronic Qualifiers: Hypertension type: essential hypertension Qualified Code(s): I10 - Essential (primary) hypertension Hospital course: Ms. Sorto is a 68 year old female with known PMH o HTN, back pain, anxiety, s/p bowel resection due to diverticulitis who presented to ER with worsening lower back, Rt hip / flank pain from last 4 days. This morning while she was going to work she noticed more intense pain from lower back, Rt flank radiating to her groin with ambulation / movement in her extremities. In the ER her CT of Abd/ Pelvis showed 2-3mm non-obstructing bilateral renal calculi, moderate amount of stool in the colon noticed. She denied any trauma and recent fall. She was admitted in the hospital and started on IV analgesics. Her UA was abnormal with nitrite positive so started her on empirical abx Rocephin. She does have b/l non obstructive calculi, for which she was evaluate dy urology who did not recommend any further work up. Regarding her intractable Rt hip pain she was evaluated by Ortho who did MRI of Hip and Lumbar spine which showed moderate DJD, most severe at L4-L5 , L5-S1. She also have Rt sacral ala / insufficiency fracture. Ortho recommend conservative management with pelvis belt and out pt PT / OT , as well as pain management. So will d/c her home in stable condition today. She also have uncontrolled DM2 with HbA1C 12.5. So started her on Lantus 15 U QHS, Glipizide and Januvia. Need to f/u with PCP for further dose adjustments. - Time Spent with Patient Total time spent providing and/or coordinating discharge services: - Discharge Medications Prescriptions: OxyCODONE/APAP 5/325 [Percocet 5/325 MG] 1 each PO Q6HR PRN 7 Days #20 tablet PRN Reason: Moderate Pain Cyclobenzaprine [Flexeril] 10 mg PO TID PRN 10 Days #30 tablet PRN Reason: Spasms glipiZIDE [Glipizide ER] 10 mg PO DAILY #30 tab.er.24 Insulin Glargine,Hum.rec.anlog [Lantus Solostar] 15 unit SQ HS #1 insuln.pen Polyethylene Glycol 3350 [MiraLAX] 17 gm PO DAILY PRN #15 powd.pack PRN Reason: Constipation Sennosides/Docusate Sodium [Senna Plus] 1 each PO BID PRN #30 tablet PRN Reason: Constipation Sitagliptin Phosphate [Januvia] 50 mg PO DAILY #30 tab Home Medications: Ibuprofen 800 mg PO Q8H PRN 04/02/18 [History] Lovastatin 10 mg PO HS 04/02/18 [History] hydroCHLOROthiazide [Hydrochlorothiazide] 25 mg PO DAILY 04/02/18 [History] Cyclobenzaprine [Flexeril] 10 mg PO TID PRN 10 Days #30 tablet 04/05/18 [Rx] Insulin Glargine,Hum.rec.anlog [Lantus Solostar] 15 unit SQ HS #1 insuln.pen 04/05/18 [Rx] OxyCODONE/APAP 5/325 [Percocet 5/325 MG] 1 each PO Q6HR PRN 7 Days #20 tablet 04/05/18 [Rx] Polyethylene Glycol 3350 [MiraLAX] 17 gm PO DAILY PRN #15 powd.pack 04/05/18 [Rx] Sennosides/Docusate Sodium [Senna Plus] 1 each PO BID PRN #30 tablet 04/05/18 [Rx] Sitagliptin Phosphate [Januvia] 50 mg PO DAILY #30 tab 04/05/18 [Rx] glipiZIDE [Glipizide ER] 10 mg PO DAILY #30 tab.er.24 04/05/18 [Rx] Allergies/Adverse Reactions: Allergy/AdvReac Type Severity Reaction Status Date / Time prochlorperazine Allergy Anaphylaxis Verified 04/02/18 22:17 [From Compazine] Date of admission: 04/02/18 11:56 Primary care physician: Ai Pham CNP Consults: 04/02/18 17:30 Consult to Urology [CONS] Routine Consulting Provider: [facility] Reason for Consult: Rt flank pain Time Notified: 17:20 Call Completed: Yes 04/03/18 09:13 Consult to Orthopedic Surgery [CONS] Routine Consulting Provider: [facility] Reason for Consult: Severe Rt hip pain Time Notified: 09:14 Call Completed: Yes 04/03/18 10:23 PT [Consult to Physical Therapy] [CONS] Routine Comment: Evaluate, develop and implement POC Reason for Consult: Severe Rt hip pain Does patient have active BEDREST order?: No Is patient medically & hemodynamically stable?: Yes Patient assessed for mobility or mobilized this visit?: Yes 04/03/18 10:24 OT [Consult to Occupational Therapy] [CONS] Routine Comment: Evaluate, develop and implement POC Reason for Consult: Severe Rt hip pain Does patient have active BEDREST order?: No Is patient medically & hemodynamically stable?: Yes Patient assessed for mobility or mobilized this visit?: Yes - Constitutional Vitals: Temp Pulse Resp BP Pulse Ox 97.9 F 69 16 109/66 94 04/05/18 10:55 04/05/18 10:55 04/05/18 10:55 04/05/18 10:55 04/05/18 10:55 General appearance: Present: cooperative, A&O X 3, answers questions appropriately Exam: Gen: Alert, awake, Oriented to time,place and person Chest: Diminished breath sounds B/L, No wheezing, No crackles, No rales Heart: S1S2+ RRR No murmurs Abd: Soft, NT, BS +, No organomegaly Ext: No edema, pulses are palpable, No calf tenderness.. Improving ROM in Rt hip. Mild tenderness in Rt groin region. Neuro : Benign findings Skin: No rash. - Patient Status Disposition: Home, Self-Care Condition: Good Overall status at discharge: patient is back to baseline - Discharge Instructions Follow Up With: Ai Pham CNP [Primary Care Provider] - 04/10/18 11:00 am Soledad Lopez PAC [Physician [place] [employer]] - - Diet and Activity Activity: as per physical therapy, increase activity as tolerated Diet: diabetic diet, low salt diet
--- NOTE | 2018-04-05 11:44 | Orthopedics Progress Note ---
Date of Encounter: 04/05/18 Time of Encounter: 11:44 - Assessment and Plan (1) Sacral insufficiency fracture Status: Acute Patient doing well, pain improved. Continue with previous discussed plan. Qualifiers: Encounter type: initial encounter Qualified Code(s): M84.48XA - Pathological fracture, other site, initial encounter for fracture (2) Right hip pain Status: Acute Objective Vital signs: Vital Signs Temp Pulse Resp BP Pulse Ox 04/05/18 10:55 97.9 F 69 16 109/66 94 04/05/18 06:56 97.9 F 58 16 110/67 95 04/05/18 04:16 97.6 F 74 16 126/79 96 04/04/18 23:51 97.7 F 61 16 107/60 97 04/04/18 19:27 98.3 F 58 16 148/75 95 04/04/18 14:55 97.8 F 78 14 129/72 94 Intake and Output 04/04/18 04/05/18 04/05/18 23:59 07:59 15:59 Intake Total Output Total 1200 / 1200 600 / 600 Balance -1190 / -1190 -600 / -600 Intake: IV Fluids Rocephin 1,000 MG In Water for inj. (sterile) 10 ML @ 600 mls/ hr IVP Q24H [facility] Rx#:[id number] Output: Urine 1200 / 1200 600 / 600 Other: Weight 64.2 kg Blood Glucose* 197 154 201 Patient Weight 04/05/18 23:59 Weight 64.2 kg - Labs CBC & BMP: 04/05/18 05:33 04/05/18 05:33 Labs: Abnormal lab results RBC 5.42 M/mcL (3.82-4.97) H 04/05/18 05:33 Hgb 16.1 g/dL (11.5-15.4) H 04/05/18 05:33 Hct 48.3 % (35.3-44.9) H 04/05/18 05:33 Potassium 3.4 mEq/L (3.5-5.1) L 04/05/18 05:33 BUN/Creatinine Ratio 27 (6-26) H 04/05/18 05:33 Glucose 184 mg/dL (70-105) H 01/31/19 05:33 POC Glucose 197 mg/dL (70-99) H 04/04/18 20:01 Hemoglobin A1c 12.5 % (-5.6) H 04/04/18 12:52 Urine Clarity Cloudy (Clear) A 04/02/18 10:09 Ur Specific [place] > 1.030 (1.010-1.025) H 04/02/18 10:09 Urine Glucose (UA) >=1000 mg/dL (Normal) H 04/02/18 10:09 Urine Ketones 15 mg/dL (Negative) H 04/02/18 10:09 Urine Nitrite Positive (Negative) A 04/02/18 10:09 Urine Microscopic WBC 3-5 per hpf (0-3) H 04/02/18 10:09 Ur Squamous Epith Cells Many per lpf (None-Few) H 04/02/18 10:09 Urine Bacteria Many per hpf (None-Few) H 04/02/18 10:09 Ur Culture Indicated? NO. (NO) A 04/02/18 10:09 Consult Discharge Plan - Plan Instructions: Sacral Fracture, [employer] (GEN) Additional Instructions: Please take your script for PT/OT to where you would like to have services. You can give the company you would like to use a call and let the know that you have a script for services. Follow-up appointments: If there is not an appointment listed below, please call your physician and schedule a follow-up appointment. If you have congestive heart failure and your symptoms return, make an appointment with your physician. Medication List: Carry an up to date list of medications you are taking at all time. We have given you an updated medication list including any new medications that you have been prescribed. Please provide that list to your primary provider Symptoms: If your condition changes or you experience any of the following symptoms, notify your physician immediately: Unusual or worsening pain, fever, persistent nausea and vomiting, bleeding, increase in swelling (especially in your legs), sudden weight gain, extreme dizziness, chest pain, increased drainage or redness from a wound or incision. Go to the emergency department if you experience a problem with breathing. Weights: If you have a history of swelling or shortness of breath, weigh yourself daily and notify your physician if you have a weight gain of two or more pounds in one day or 5 or more pounds in a week. If you experience any of the warning signs for stroke: Sudden numbness or weakness of the face, arm or leg; especially on one side of the body, sudden confusion, trouble speaking or understanding, sudden trouble se eing in one or both eyes, sudden trouble walking, dizziness, loss of balance or coordination, sudden sever headache with no cause; Call 911 or go to the emergency room. Stroke is a medical emergency. Some risk factors for stroke: Age, cigarette smoking, diabetes, excessive alcohol consumption, family history, high blood pressure, overweight, physical inactivity, prior stroke, heart attack, diagnosis of carotid artery stenosis or other artery disease. If you smoke, STOP: Smoking or tobacco use significantly increases your risk of heart and lung disease. Your chance of disease greatly increases if you continue to smoke. For more information, call the [employer] quit line for smoking cessation NOW ( ) Referrals: [facility] [Provider Group] (Follow up appointment has been requested. Office will call with date and time of appointment. ) Ai Pham CNP [Primary Care Provider] - 04/10/18 11:00 am Prescriptions: OxyCODONE/APAP 5/325 [Percocet 5/325 MG] 1 each PO Q6HR PRN 7 Days #20 tablet PRN Reason: Moderate Pain Cephalexin [Keflex] 500 mg PO TID #6 capsule Cyclobenzaprine [Flexeril] 10 mg PO TID PRN 10 Days #30 tablet PRN Reason: Spasms glipiZIDE [Glipizide ER] 10 mg PO DAILY #30 tab.er.24 Insulin Glargine,Hum.rec.anlog [Lantus Solostar] 15 unit SQ HS #1 insuln.pen Polyethylene Glycol 3350 [MiraLAX] 17 gm PO DAILY PRN #15 powd.pack PRN Reason: Constipation Sennosides/Docusate Sodium [Senna Plus] 1 each PO BID PRN #30 tablet PRN Reason: Constipation Sitagliptin Phosphate [Januvia] 50 mg PO DAILY #30 tab
== END 2018-04-05 15:14 | disposition home or self-care (01) | DRG 543 ==
LOC: 3ANU 06:47 → EMEROOARM 06:47 → OBSVTOIN 11:56 → SUATTDRO 11:56 → 3BNU 12:02
PROVIDERS: ADMIT Internal Medicine; ATTEND Family Medicine